=== PATIENT | male | born 1950 | race Caucasian/White ===

== ENCOUNTER 2023-03-01 21:01 | Emergency (ER) | payer MEDICARE, OTHER, SELFPAY ==
[2023-03-01 21:10] VITALS: BP 162/75; PULSE 60; RESP 18; TEMP 37; O2SAT 98; BMI 31.6
--- NOTE | 2023-03-01 23:09 | ED.WOUNDLAC ---
HPI - Wound/Laceration General Chief Complaint: Wound/Laceration Stated Complaint: lip won't stop bleeding Time Seen by Provider: 03/01/23 23:04 Source: patient Mode of arrival: Ambulatory History of Present Illness HPI narrative: Patient is a 73-year-old male. He is on anticoagulation. He is here for evaluation of a spot on his lower lip that has been bleeding since very early in the morning. He states he thinks that he bit his lip. He has a sore on his lip that has been there for a very long time. He has been seen by Dermatology for this. Is of unknown etiology for this sore. This is the spot that is bleeding. He is tried pressure without improvement. Review of Systems Integumentary/Breasts Skin/Breast: Reports system reviewed and no additional complaints, except as documented Hematologic/Lymphatic On Anticoagulants: No Patient History Social History Smoking Status: Former smoker Smoking Status: Former smoker alcohol intake frequency: a few times a week Substance Use Type: does not use Exam Initial Vital Signs Initial Vital Signs: Vital Signs Temperature 98.6 F 03/01/23 21:10 Pulse Rate 60 03/01/23 21:10 Respiratory Rate 18 03/01/23 21:10 Blood Pressure 162/75 H 03/01/23 21:10 Pulse Oximetry 98 03/01/23 21:10 Oxygen Delivery Method Room Air 03/01/23 21:10 HENMS Mouth: lip abnormal Skin Other: There is 0.25 cm area of darker skin on the right side of the lower lip that has oozing from the area. Course Orders Ordered: Discontinued Medications Silver Nitrate/Potassium Nitrate (Silver Nitrate Stick) 2 each TOP NOW ONE Stop: 03/01/23 23:29 Last Admin: 03/02/23 00:10 Dose: 2 each Documented By: SPF Vital Signs Vital signs: Vital Signs - 8 hr 03/01/23 21:10 03/02/23 00:11 Temperature 98.6 F Pulse Rate 60 67 Respiratory Rate 18 16 Blood Pressure 162/75 H 182/80 H Pulse Oximetry 98 97 Oxygen Delivery Method Room Air Room Air MDM - Wound/Laceration MDM Narrative Medical decision making narrative: While in the waiting room the patient did have bleeding. He put pressure over the area. During my initial evaluation there was no bleeding. He was observed for a short period of time. It then started to rebleed. I then used cautery over the area which seemed to stop the bleeding. He was observed for period of time longer without any more rebleeding. He tolerated oral intake. Will discharge patient home with return precautions. Discharge Plan Departure Patient Disposition: Home Clinical Impression: Lip lesion Activity Restrictions/Additional Instructions: Continue to take all of your medications as directed. If your lip were to start bleeding again I would recommend pressure and ice. Contact your primary doctor for follow-up. Return to the emergency department for new symptoms. Referrals: ProviderJacobo [Primary Care Provider] - Stand Alone Forms: Patient Portal/API
[2023-03-02] MEDS: SILVER NITRATE STICK 2 EACH TOP (00:10)
[2023-03-02 00:11] VITALS: BP 182/80; PULSE 67; RESP 16; O2SAT 97
== END 2023-03-02 00:18 | disposition home or self-care (01) ==
PROVIDERS: Emergency Provider Emergency Medicine
DX: K13.0 Diseases of lips (principal); Z79.01 Long term (current) use of anticoagulants
CPT/HCPCS: 99282; 99283

== ENCOUNTER → 2024-11-20 12:45 | Outpatient (CLI) | payer MEDICARE, OTHER, SELFPAY ==
--- NOTE | 2024-11-20 12:49 | DI.US.S_ITS ---
PROCEDURE: US VENOUS INSUFFICIENCY BILAT INDICATIONS: PVD TECHNIQUE: Real time scanning was performed of the lower extremity venous system, with imaging documentation, as well as Color and pulse Doppler interrogation. COMPARISON: None. FINDINGS: RIGHT LOWER EXTREMITY: The deep veins are normally compressible, and free of intraluminal thrombus. Color and pulse Doppler demonstrate normal intravascular flow. There is normal augmentation with distal compression maneuver. Heavy plaque within the common femoral artery. Reflux noted in the common femoral vein, superficial femoral vein and popliteal vein. Greater saphenous vein (GSV): Normally 4 mm or less in diameter, with any reflux less than 0.5 seconds. Saphenofemoral junction (SFJ): 11 mm. Reflux at 1.3 seconds. Proximal GSV: Five mm. Reflux at 3.1 seconds. The remaining greater saphenous vein is harvested. Anterior accessory GSV (AAGSV): Present and competent, measuring 3 millimeter. Small saphenous vein (SSV): Posterior calf, draining into popliteal vein. Posterior calf: 3 mm. No reflux. Vein of Giacomini (posterior thigh connection between GSV and SSV): Anatomic variant not seen. Student Teacher veins: Not visualized. LEFT LOWER EXTREMITY: The deep veins are normally compressible, and free of intraluminal thrombus. Color and pulse Doppler demonstrate normal intravascular flow. There is normal augmentation with distal compression maneuver. Reflux noted in the common femoral vein and mid superficial femoral vein. Greater saphenous vein (GSV): Normally 4 mm or less in diameter, with any reflux less than 0.5 seconds. Saphenofemoral junction (SFJ): 12 mm. Reflux at 1.6 seconds. Proximal GSV: 5 mm. Reflux at 1.7 seconds Mid GSV: 3 mm. Reflux at 1.8 seconds Distal GSV: 4 mm. No reflux. Calf GSV: 2 mm. Reflux at 1 second. Anterior accessory GSV (AAGSV): Anatomic variant not present across anterior thigh. Small saphenous vein (SSV): Posterior calf, draining into popliteal vein. Posterior calf: 2 mm. No reflux. Vein of Giacomini (posterior thigh connection between GSV and SSV): Anatomic variant not seen. Student Teacher veins: Not seen. IMPRESSION: On the right: -reflux in the common femoral vein, superficial vein remain and popliteal vein. -reflux in the proximal great saphenous vein, harvested distally. On the left: -reflux in the common femoral vein and superficial femoral vein -reflux in the entire great saphenous vein. Dictated by: Rachid Stanton M.D. on 11/25/2024 at 10:58 Approved by: Rachid Stanton M.D. on 11/25/2024 at 11:05
== END ==
LOC: US 12:48
PROVIDERS: Referring Provider Family Medicine; Visit Provider Family Medicine
DX: I73.9 Peripheral vascular disease, unspecified (principal); I87.2 Venous insufficiency (chronic) (peripheral)
CPT/HCPCS: 93970